=== PATIENT | female | born 1975 | race Asian ===

== ENCOUNTER 2019-06-29 12:38 | Day surgery (SDC) | payer OTHER ==
[2019-06-28 16:08] VITALS: BMI 33.3
[2019-06-29 12:55] LABS: #Basophils 0.1 thou/uL (0.0-0.2); #Eosinphils 0.2 thou/uL (0.0-0.7); #Lymphocytes 1.9 thou/uL (1.20-3.40); #Monocytes 0.5 thou/uL (0.11-0.59); #Neutrophils 5.7 thou/uL (1.40-6.50); %Basophils 1.2 % (0.0-1.0); %Eosinophils 2.7 % (0.0-10.0); %Lymphocytes 22.3 % (21.0-51.0); %Monocytes 6.3 % (0.0-10.0); %Neutrophils 67.6 % (42.0-75.0); Hemoglobin 9.3 g/dL (12.0-16.0); Mean Corpuscular HGB CONC 31.3 g/dL (32.0-36.0); Mean Corpuscular Hemoglobin 30.9 pg (27.0-31.0); Mean Corpuscular Volume 98.8 fL (78.0-98.0); Mean Platelet Volume 8.4 fL (7.4-10.4); Platelet Count 210 thou/uL (130-400); RBC Distribution Width 16.3 % (11.5-14.5); White Blood Cell (WBC) Count 8.4 thou/uL (4.8-10.8)
[2019-06-29 13:05] LABS: INR-International Normal Ratio 1.3; Prothrombin Time 16.1 SEC (12.0-14.7)
[2019-06-29 15:36] VITALS: BP 111/74; TEMP 97.7
--- NOTE | 2019-06-29 15:36 | ULT ---
Exam: Ultrasound guided paracentesis HISTORY: Ascites COMPARISON: None FINDINGS: Successful ultrasound-guided paracentesis. Total of 5 L of yellow color ascites ascites was aspirated. TECHNIQUE: Consent obtained reformatory ultrasound-guided paracentesis. Right lower quadrant was deem ed appropriate. Skin was prepped and draped in a sterile fashion. 1% lidocaine, buffered with sodium bicarbonate was used for local anesthesia. Under ultrasound guidance, a 5 [place] 7 cm Yueh cat heter is advanced in the peritoneal space. A total of 5 L of yellow color ascites ascites was aspirated. No immediate or postprocedural complications IMPRESSION: Successful ultrasound-guided paracentesis.
[2019-06-29 16:59] LABS: RBC Count-Automated (BF) 231 /cumm; WBC/Nucleated-Auto (BF) 703 uL
[2019-06-29 17:02] LABS: Fluid, Bilirubin Total 0.4 mg/dL (Not Available)
[2019-06-29 17:36] LABS: BF Color Yellow; Body Fluid Source Ascites Body Fluid; Clarity Hazy (Clear); Tube # EDTA
[2019-06-29 17:40] LABS: BF Segmented Neutrophils 5 %; Cell Count Non Hematic 39 %; Lymphocytes 55 %
== END 2019-06-29 14:45 | disposition home or self-care (01) ==
LOC: ULT 12:38
PROVIDERS: ATTEND Physician Assistant Medical
PROC: 0W9G3ZZ Drainage of Peritoneal Cavity, Percutaneous Approach (ICD-10-PCS; principal; 2019-06-29)
PROC: BW40ZZZ Ultrasonography of Abdomen (ICD-10-PCS; principal; 2019-06-29)
DX: R18.8 Other ascites (principal); F41.9 Anxiety disorder, unspecified; F32.9 Major depressive disorder, single episode, unspecified; Z91.040 Latex allergy status
CPT/HCPCS: 36415; 49083; 82042; 82150; 82247; 84155; 85025; 85060; 85610; 85730; 87070; 87205; 88112; 88305; 89051

== ENCOUNTER 2019-07-13 12:26 | Day surgery (SDC) | payer OTHER ==
[2019-07-07 14:16] VITALS: BMI 33.3
[2019-07-13] MEDS ORDERED: Albumin 25% 200 ML ONE (13:45)
[2019-07-13] MEDS ORDERED: Lidocaine 1% PF 5 ML VIAL ONE (13:45)
[2019-07-13] MEDS ORDERED: Sodium Bicarbonate 2.5 MEQ/5 ML VIAL ONE (13:45)
[2019-07-13 16:01] VITALS: BP 102/65; TEMP 97.7
--- NOTE | 2019-07-13 16:24 | ULT ---
Exam: Ultrasound guided paracentesis HISTORY: Ascites COMPARISON: Prior exam dated June 29, 2019 FINDINGS: Successful ultrasound-guided paracentesis. Total of 3 L ofascites was aspirated. TECHNIQUE: Consent obtained reformatory ultrasound-guided paracentesis. Right lower quadrant was deem ed appropriate. Skin was prepped and draped in a sterile fashion. 1% lidocaine, buffered with sodium bicarbonate was used for local anesthesia. Under ultrasound guidance, a 5 [place] 7 cm Yueh cat heter is advanced in the peritoneal space. A total of 3 L of normal appearingascites was aspirated. No immediate or postprocedural complications IMPRESSION: Successful ultrasound-guided paracentesis.
== END 2019-07-13 15:10 | disposition home or self-care (01) ==
LOC: ULT 12:26
PROVIDERS: ATTEND Physician Assistant Medical
PROC: 0W9G3ZX Drainage of Peritoneal Cavity, Percutaneous Approach, Diagnostic (ICD-10-PCS; principal; 2019-07-13)
DX: K74.60 Unspecified cirrhosis of liver (principal); R18.8 Other ascites; F10.11 Alcohol abuse, in remission; F41.9 Anxiety disorder, unspecified; F31.9 Bipolar disorder, unspecified; Z79.899 Other long term (current) drug therapy; Z91.040 Latex allergy status
CPT/HCPCS: 49083; J2001; P9047